=== PATIENT | female | born 1935 | race Caucasian/White ===

== ENCOUNTER 2022-12-05 07:15 | Outpatient (CLI) | payer MEDICARE, BC, SELFPAY | END 2022-12-05 07:16 | disposition home or self-care (01) | PROVIDERS: PCP Family Medicine; Visit Provider Family Medicine | DX: M54.16 Radiculopathy, lumbar region (principal); M51.36 Other intervertebral disc degeneration, lumbar region | CPT/HCPCS: 62323; J0702; Q9966 ==

== ENCOUNTER 2024-04-29 14:12 | Outpatient (CLI) | payer MEDICARE, BC, SELFPAY | END 2024-04-29 14:13 | disposition home or self-care (01) | LOC: INJ CL 14:13 | PROVIDERS: PCP Family Medicine; Visit Provider Family Medicine | DX: M54.16 Radiculopathy, lumbar region (principal); M51.36 Other intervertebral disc degeneration, lumbar region | CPT/HCPCS: 64483; J1100; Q9966 ==

== ENCOUNTER 2025-03-10 09:54 | Outpatient (CLI) | payer MEDICARE, BC, SELFPAY | END 2025-03-10 09:55 | disposition home or self-care (01) | LOC: INJ CL 09:55 | PROVIDERS: PCP Family Medicine; Visit Provider Family Medicine | DX: M54.16 Radiculopathy, lumbar region (principal) | CPT/HCPCS: 64483; J1100; Q9966 ==